=== PATIENT | female | born 1955 | race Caucasian/White ===

== ENCOUNTER 2021-03-20 23:49 | Emergency (ER) | payer MEDICARE, OTHER ==
[~2021-03-20 23:49] MED LIST: ACTOS30 MG PO; ASPIR 8181 MG PO; AVALIDE 300-121 EACH PO; COREG 3.125M3.125 MG PO; CRESTOR10 MG PO; FARXIGA10 MG PO; GLUCOPHAGE500 MG PO; KEFLEX500 MG PO; KEPPRA500 MG PO; MAGNESIUM200 MG PO; METRONIDAZOLE250 MG PO; NORVASC10 MG PO; PREMARIN1.25 MG PO; PREVACID30 MG PO; TRICOR145 MG PO; TUMS ULTRA400 MG PO; ZETIA10 MG PO
[2021-03-21 00:12] LABS: HEMOGLOBIN 11.5 gm/dl (12.3-15.3); RED BLOOD COUNT 3.76 M/UL (4.00-5.10); WHITE BLOOD COUNT 8.1 K/UL (4.5-11.0)
[2021-03-21 00:32] LABS: BUN/CREATININE RATIO 22 (0-10)
[2021-03-21] MEDS ORDERED: Voltaren Gel 1 % TOP (03:51)
== END 2021-03-21 04:02 | disposition home or self-care (01) ==
LOC: ER1 23:49
PROVIDERS: Physician Assistant
DX: R10.9 Unspecified abdominal pain (principal); I10 Essential (primary) hypertension; M54.9 Dorsalgia, unspecified; E11.9 Type 2 diabetes mellitus without complications; G40.909 Epilepsy, unspecified, not intractable, without status epilepticus; Z90.710 Acquired absence of both cervix and uterus
CPT/HCPCS: 71045; 80053; 82550; 82553; 83690; 83874; 84484; 85025; 93005; 99284

== ENCOUNTER → 2022-03-28 | Outpatient (CLI) | payer MEDICARE, OTHER ==
[~2022-03-28] MED LIST changes: +Voltaren Gel 1 % TOP
[2022-03-28 12:40] LABS: ADENOVIRUS F 40/41 Not Detected (Negative); ASTROVIRUS Not Detected (Negative); CAMPYLOBACTER Not Detected (Negative); CRYPTOSPORIDIUM Not Detected (Negative); E.COLI 0157 Not Detected (Negative); ENTAMOEBA HISTOLYTICA Not Detected (Negative); ENTEROTOXIGENIC E.COLI (ETEC) Not Detected (Negative); GIARDIA LAMBLIA Not Detected (Negative); PLESIOMONAS SHIGELLOIDES Not Detected (Negative); SALMONELLA Not Detected (Negative); SHIG/ENTEROINVAS.ECOLI (EIEC) Not Detected (Negative); SHIGA-LIK TOX.PRO.E.COLI (STEC Not Detected (Negative); VIBRIO Not Detected (Negative); VIBRIO CHOLERAE Not Detected (Negative); YERSINIA ENTEROCOLITICA Not Detected (Negative)
[2022-03-28 12:41] LABS: NOROVIRUS GI/GII Not Detected (Negative); ROTOVIRUS A Not Detected (Negative); SAPOVIRUS Not Detected (Negative)
[2022-03-28 14:03] LABS: CLOSTRIDIUM DIFFICILE TOX A/B Not Detected (Negative); ENTEROAGGREGATIVE E.COLI (EAEC DETECTED (Negative); ENTEROPATHOGENIC E.COLI (EPEC) DETECTED (Negative)
== END ==
LOC: LAB 11:12
PROVIDERS: Family Medicine
DX: E78.5 Hyperlipidemia, unspecified (principal); E11.65 Type 2 diabetes mellitus with hyperglycemia; R19.7 Diarrhea, unspecified
CPT/HCPCS: 36415; 80053; 80061; 82043; 83036; 87507